=== PATIENT | male | born 1955 | race African-American/Black ===

== ENCOUNTER 2019-05-02 10:51 | Emergency (ER) | payer MEDICARE, MEDICAID ==
[~2019-05-02] VITALS: Ht 177.8 cm; Wt 70.0 kg
[~2019-05-02 10:51] MED LIST: LEDI1TAB PO
[2019-05-02] MEDS ORDERED: LIDOcaine 1% w/epiNEPHrine 1:200,000 30ml vial SQ ONE (12:10)
[2019-05-02] MEDS ORDERED: TETanus/Pertussis (Acell)/Diphther VAC/PF (Tdap-Adult) 0.5ml syringe IMVAC ONE (12:10)
--- NOTE | 2019-05-02 12:35 | NUR ---
SET UP FOR DRAINAGE OF MIDDLE FINGER RIGHT AT BEDSIDE PER DR CHOW
[2019-05-02] MEDS ORDERED: SULF1TAB49 PO (12:37)
[2019-05-02 12:52] VITALS: BP 115/66
== END 2019-05-02 12:55 | disposition home or self-care (01) ==
LOC: ER 10:51
DX: L03.011 Cellulitis of right finger (principal); F17.200 Nicotine dependence, unspecified, uncomplicated; Z98.890 Other specified postprocedural states; Z59.0 Homelessness; Z79.2 Long term (current) use of antibiotics; Z79.899 Other long term (current) drug therapy
CPT/HCPCS: 10060; 73140; 90471; 99283

== ENCOUNTER 2019-10-02 17:49 | Emergency (ER) | payer OTHER, MEDICARE, MEDICAID ==
[~2019-10-02] VITALS: Ht 177.8 cm; Wt 72.5 kg
[2019-10-02 18:05] VITALS: BP 130/90
== END 2019-10-02 20:05 | disposition home or self-care (01) ==
LOC: ER 17:49
DX: M54.5 Low back pain (principal); F10.99 Alcohol use, unspecified with unspecified alcohol-induced disorder; Z86.69 Personal history of other diseases of the nervous system and sense organs; Z98.890 Other specified postprocedural states; Z79.899 Other long term (current) drug therapy; V89.2XXA Person injured in unspecified motor-vehicle accident, traffic, initial encounter; Y93.89 Activity, other specified; Y92.488 Other paved roadways as the place of occurrence of the external cause; Y99.8 Other external cause status; Y90.9 Presence of alcohol in blood, level not specified
CPT/HCPCS: 99281